=== PATIENT | female | born 1990 | race Caucasian/White ===

== ENCOUNTER → 2017-10-28 12:13 | Outpatient (CLI) | payer OTHER, SELFPAY ==
--- NOTE | 2017-10-28 12:15 | US_ITS ---
STUDY: ULTRASOUND TRANSVAGINAL CLINICAL: Female, 27 years old. Pain. TECHNIQUE: Transvaginal COMPARISON: None. FINDINGS: Normal uterine size measuring 8.5 x 5.5 x 4.0 cm in maximal craniocaudal dimension. There are no myometrial masses. Normal endometrial thickness measuring 6 mm. There are no endometrial masses, and there is no fluid in the endometrial cavity. A small amount of fluid is seen in the cervical canal consistent with recent menstrual period. Normal right ovary, measuring 2.2 x 2.3 x 1.9 cm. There are multiple follicles without a dominant cyst. Normal left ovary, measuring 2.8 x 1.9 x 1.2 cm. There are multiple follicles without a dominant cyst. There is no free fluid in the pelvis. Normal bladder contour. Polycystic ovary disease: No. US/Pelvic (Non ) IMPRESSION: Small amount of fluid in the endocervical canal is consistent with current menstrual period. No definite abnormality found. Electronically Signed: Angel Roberts MD at 17:27 EDT , Service support ,
--- NOTE | 2017-10-28 12:15 | US_ITS ---
STUDY: ULTRASOUND TRANSVAGINAL CLINICAL: Female, 27 years old. Pain. TECHNIQUE: Transvaginal COMPARISON: None. FINDINGS: Normal uterine size measuring 8.5 x 5.5 x 4.0 cm in maximal craniocaudal dimension. There are no myometrial masses. Normal endometrial thickness measuring 6 mm. There are no endometrial masses, and there is no fluid in the endometrial cavity. A small amount of fluid is seen in the cervical canal consistent with recent menstrual period. Normal right ovary, measuring 2.2 x 2.3 x 1.9 cm. There are multiple follicles without a dominant cyst. Normal left ovary, measuring 2.8 x 1.9 x 1.2 cm. There are multiple follicles without a dominant cyst. There is no free fluid in the pelvis. Normal bladder contour. Polycystic ovary disease: No. US/Transvaginal Non- IMPRESSION: Small amount of fluid in the endocervical canal is consistent with current menstrual period. No definite abnormality found. Electronically Signed: Angel Roberts MD at 17:27 EDT , Service support ,
== END ==
PROVIDERS: Family Provider Student in an Organized Health Care Education/Training Program; PCP Student in an Organized Health Care Education/Training Program; Visit Provider Obstetrics & Gynecology
DX: R10.2 Pelvic and perineal pain (principal)
CPT/HCPCS: 76830; 76856; 93976

== ENCOUNTER → 2018-07-03 16:58 | Outpatient (CLI) | payer MEDICAID, SELFPAY ==
[2018-07-03 16:23] VITALS: BMI 25.8
[2018-07-03 17:37] LABS: Absolute Lymphocyte Count 2.53 X10^3/ul (0.83-4.51); Absolute Neutrophil Count 6.3 X10^3/uL (2.0-7.7); Basophil# 0.02 X10^3/uL; Basophil% 0.2 % (0-1); Eosinophil# 0.05 X10^3/uL; Eosinophils% 0.5 % (0-5); Hematocrit 39.9 % (37-47); Hemoglobin 13.5 g/dl (12.0-15.0); Lymphocyte # 2.53 X10^3/ul (4.0); Lymphocyte % 26.7 % (19-41); Mean Corp Hgb Conc 33.8 g/gl (32-36); Mean Corpuscular Hgb 29.8 pg (27.0-32.0); Mean Corpuscular Volume 88.1 fL (81-99); Monocyte# 0.53 X10^3/uL; Monocyte% 5.6 % (0-10); Neutrophil % 66.7 % (47-70); POSITIVE COUNT NO; POSITIVE DIFFERENTIAL NO; POSITIVE MORPHOLOGY NO; Platelet Count 243 K/mm3 (150-450); RBC Distribution Width CV 12.5 % (11.6-14.6); RBC Distribution Width SD 39.5 fl (35.1-43.9); Red Blood Count 4.53 M/mm3 (4.2-5.4); White Blood Count 9.5 K/mm3 (4.4-11.0)
[2018-07-03 19:03] LABS: HIV - WCH Non-Reactive (Nonreactive); Rubella IgG 104.6 IU/mL
[2018-07-05 11:23] LABS: HEPATITIS B SURFACE AG Negative (Negative)
[2018-07-07 02:33] LABS: Rapid Plasmin Reagin (RPR) NONREACTIVE (NONREACTIVE)
== END ==
PROVIDERS: Family Provider Student in an Organized Health Care Education/Training Program; PCP Student in an Organized Health Care Education/Training Program; Referring Provider Obstetrics & Gynecology; Visit Provider Obstetrics & Gynecology
DX: Z34.90 Encounter for supervision of normal pregnancy, unspecified, unspecified trimester (principal)
CPT/HCPCS: 36415; 85025; 86592; 86703; 86762; 86850; 86900; 87086; 87340

== ENCOUNTER → 2018-08-04 11:50 | Outpatient (CLI) | payer MEDICAID, SELFPAY ==
[2018-08-04 11:33] VITALS: BMI 25.8
== END ==
PROVIDERS: Family Provider Student in an Organized Health Care Education/Training Program; PCP Student in an Organized Health Care Education/Training Program; Referring Provider Obstetrics & Gynecology; Visit Provider Obstetrics & Gynecology
DX: Z34.82 Encounter for supervision of other normal pregnancy, second trimester (principal)
CPT/HCPCS: 36415

== ENCOUNTER → 2018-09-25 07:56 | Outpatient (CLI) | payer MEDICAID, SELFPAY ==
[2018-09-07 12:17] VITALS: BMI 25.8
--- NOTE | 2018-09-25 07:58 | US_ITS ---
STUDY: SECOND AND THIRD TRIMESTER OBSTETRICAL ULTRASOUND REASON FOR EXAM: Female, 27 years old. Routine survey. Baby A LMP: May 04, 2018. TECHNIQUE: Transabdominal TECHNICAL QUALITY: Adequate. PRIOR ULTRASOUND: None. FINDINGS: There is a single intrauterine fetus. The fetus is in a variable presentation. There is demonstrated cardiac activity with a heart rate of 175 bpm. There is a normal amniotic fluid volume. The largest amniotic fluid pocket measures 5.3 cm x 12.9 cm. The amniotic fluid index (LULA) is normal. The placenta is fundal and posterior in location. There are Grade 0 placental changes. The cervix measures 4.3 cm in length. The bilateral adnexal regions are normal. BIOMETRY: BPD: 4.26 cm: 19 weeks, 0 days HC: 17.02 cm: 19 weeks, 0 days AC: 15.68 cm: 20 weeks, 6 days FL: 2.95 cm: 19 weeks, 1 days CI: 74% FL/BPD: 69% FL/HC: FL/AC: 19% HC/AC: 1.09 age by current US: 19 weeks, 5 days. CHRIS by current US: February 14, 2019. Estimated weight: 323 grams, +/- 47 grams, 16 %. Age by LMP: 20 weeks, 4 days. CHRIS by LMP: February 08, 2019. ANATOMY: Gender: Indeterminant Cranium: Normal lateral ventricles. Normal choroid plexus. Normal cerebellum. Normal cisterna magna. Normal face, nose and lips. Chest: Normal 4-chamber heart. Abdomen/Pelvis: Normal diaphragm. Normal stomach. Normal abdominal wall. Normal cord insertion. Normal 3 vessel cord. The kidneys are non-visualized. The bladder is non-visualized. There is a cystic structure in the mid abdomen. This may be related to the stomach. Follow-up examination is recommended. Spine: The cervical, thoracic and lumbar spines were not adequately seen due to the position. Extremities: Normal bilateral upper extremities. Normal bilateral lower extremities. IMPRESSION: Twin A. Estimated age of 19 weeks and 5 days. Several findings as described. Follow-up is recommended. Electronically Signed: Antonio Thornton, at 9:35 EST , Service support , STUDY: SECOND AND THIRD TRIMESTER OBSTETRICAL ULTRASOUND - TWIN REASON FOR EXAM: Female, 27 years old. LMP: May 04, 2018 TECHNIQUE: Transabdominal TECHNICAL QUALITY: Adequate. COMPARISON: None. FINDINGS: There are two intrauterine fetuses. The amniotic membrane cannot be visualized. There is a normal amniotic fluid volume within each amniotic sac. The uterine wall is normal. There is a competent closed cervical os. The cervix measures 4.3 cm in length. The bilateral adnexal regions are normal. Fetus B demonstrates indeterminate external genitalia. Fetus B demonstrates cardiac activity with a heart rate of 169 bpm. Fetus B is in a variable presentation. FETUS B BIOMETRY: BPD: 4.63 cm: 20 weeks, 0 days HC: 17.03 cm: 19 weeks, 5 days AC: 14.91 cm: 20 weeks, 2 days FL: 3.00 cm: 19 weeks, 2 days CI: 80% FL/BPD: 65% FL/HC: FL/AC: 20% HC/AC: 1.14 age by current US: 19 weeks, 6 days. CHRIS by current US: February 13, 2019. Estimated weight: 311 grams, +/- 45 grams, 11 %. Age by LMP: 20 weeks, 4 days. CHRIS by LMP: February 08, 2019. FETUS B ANATOMY: Cranium: Normal lateral ventricles. Normal choroid plexus. Normal cerebellum. Normal cisterna magna. Normal face, nose and lips. Chest: Normal 4-chamber heart. Abdomen/Pelvis: Normal diaphragm. Normal stomach. Normal abdominal wall. Normal cord insertion. Normal 3 vessel cord. Normal kidneys. Normal bladder. Spine: Normal cervical spine. Normal thoracic spine. Normal lumbar spine. Normal sacrum. Extremities: Normal bilateral upper extremities. Normal bilateral lower extremities. US/OB Anatomy Scan IMPRESSION: Twin B. Gestational age of 19 weeks and 6 days. Electronically Signed: Antonio Thornton, at 9:38 EST , Service support ,
== END ==
PROVIDERS: Family Provider Student in an Organized Health Care Education/Training Program; PCP Student in an Organized Health Care Education/Training Program; Referring Provider Obstetrics & Gynecology; Visit Provider Obstetrics & Gynecology
DX: Z34.90 Encounter for supervision of normal pregnancy, unspecified, unspecified trimester (principal)
CPT/HCPCS: 76805; 76810

== ENCOUNTER → 2018-11-17 | Outpatient (CLI) | payer MEDICAID, SELFPAY ==
[2018-11-13 10:00] VITALS: BMI 25.8
[2018-11-17 12:40] LABS: Absolute Lymphocyte Count 2.65 X10^3/ul (0.83-4.51); Absolute Neutrophil Count 7.5 X10^3/uL (2.0-7.7); Basophil# 0.05 X10^3/uL; Basophil% 0.4 % (0-1); Eosinophil# 0.11 X10^3/uL; Hematocrit 33.9 % (37-47); Lymphocyte # 2.65 X10^3/ul (4.0); Lymphocyte % 23.6 % (19-41); Mean Corp Hgb Conc 32.4 g/gl (32-36); Mean Corpuscular Hgb 28.1 pg (27.0-32.0); Mean Corpuscular Volume 86.5 fL (81-99); Mean Platelet Vol. 11.1 fl (6.2-12.0); Monocyte% 7.1 % (0-10); Neutrophil # 7.54 X10^3/uL (2.7-7.7); Platelet Count 135 K/mm3 (150-450); RBC Distribution Width CV 13.3 % (11.6-14.6); RBC Distribution Width SD 41.5 fl (35.1-43.9); Red Blood Count 3.92 M/mm3 (4.2-5.4); White Blood Count 11.3 K/mm3 (4.4-11.0)
[2018-11-17 12:47] LABS: POSITIVE COUNT NO; POSITIVE DIFFERENTIAL NO; POSITIVE MORPHOLOGY NO
[2018-11-17 13:01] LABS: Glucose Challenge Gest 1H 50g 114 mg/dL (70-140)
== END | disposition home or self-care (01) ==
PROVIDERS: Family Provider Student in an Organized Health Care Education/Training Program; PCP Student in an Organized Health Care Education/Training Program; Referring Provider Obstetrics & Gynecology; Visit Provider Obstetrics & Gynecology
DX: Z34.90 Encounter for supervision of normal pregnancy, unspecified, unspecified trimester (principal)
CPT/HCPCS: 36415; 82950; 85025

== ENCOUNTER 2018-11-29 15:10 | Outpatient (CLI) | payer MEDICAID, SELFPAY ==
[2018-11-29 15:05] VITALS: BMI 25.8
[2018-11-29 15:55] VITALS: BMI 30.9
[2018-11-29] MEDS: Lactated Ringers 1,000 ML 999 ML IV (16:21)
[2018-11-29 17:00] LABS: Mucous, Urine 0 SEEN /hpf (<or=2+); Red Blood Cells-Urine 0 SEEN /hpf (0-5)
[2018-11-29] MEDS: Lactated Ringers 500 ML 999 ML IV (17:06)
[2018-11-29 17:50] LABS: Color, Urine Yellow (Yellow); Glucose, Dipstick Normal (Normal); Ketone-Dipstick 50 mg/dl (Negative); Leukocyte Esterase-Dipstick 25 /ul (Negative); Nitrite-Dipstick Negative (Negative); Occult Blood-Urine Negative /ul (Negative); Protein-Dipstick Negative (Negative); Specific Gravity, Urine 1.015 (1.002-1.030); Urine Bilirubin Dipstick Negative (Negative); Urine Clarity Sl. Cloudy (Clear); Urine Urobilinogen 1 mg/dl (Normal)
[2018-11-29 17:52] LABS: Bacteria 2+ /hpf (None Seen); Squamous Epithelial Cells - UA 0-5 SEEN /hpf (5-10); White Blood Cells 0-5 SEEN /hpf (0-5)
[2018-11-29] MEDS: Dextrose 5%-Lactated Ringers 1,000 ML 200 ML IV (18:32)
[2018-11-29] MEDS: Terbutaline 1 MG/ML Vial 0.25 MG SC (18:33)
--- NOTE | 2018-11-30 07:36 | OB.TRI.NOTE ---
History of Present Illness Date of Service: 11/29/18 Was patient seen by the physician?: Yes Reason For Visit: R/O PRE TERM LABOR Date of Service: 11/29/18 Final CHRIS: 02/08/19 Final CHRIS Source: US <20 weeks Gestational age: 30 Weeks and 0 Days History of Present Illness: Complaints of contraction like pains. No signs of PPROM no bleeding. Allergies soap Allergy (Verified 11/29/18 15:57) Rash sumatriptan [From Imitrex] Allergy (Verified 11/29/18 15:57) Anaphylaxis - Pertinent Past Medical History Medical History: Past Medical History (Last Reviewed 11/29/18 @ 14:35 by Rylee Ramos) Abnormal Pap smear of cervix Surgical History: Past Surgical History (Last Reviewed 11/29/18 @ 14:35 by Rylee Ramos) Endometriosis determined by laparoscopy Laboratory Studies: Laboratory Tests 11/29/18 Range/Units 16:45 Urine Color Yellow (Yellow) Urine Clarity Sl. Cloudy (Clear) Urine pH 7.0 (5.0 - 8.0) Ur Specific [place] 1.015 (1.002-1.030) Urine Protein Negative (Negative) mg/dl Urine Glucose (UA) Normal (Normal) mg/dl Urine Ketones 50 H (Negative) mg/dl Urine Occult Blood Negative (Negative) /ul Urine Nitrite Negative (Negative) Urine Bilirubin Negative (Negative) mg/dL Urine Urobilinogen 1 H (Normal) mg/dl Ur Leukocyte Esterase 25 H (Negative) /ul Urine RBC 0 SEEN (0-5) /hpf Urine WBC 0-5 SEEN (0-5) /hpf Ur Squamous Epith Cells 0-5 SEEN (5-10) /hpf Urine Bacteria 2+ (None Seen) /hpf Urine Mucus 0 SEEN (<or=2+) /hpf Physical Exam General: Alert, Oriented x3, Cooperative, No apparent distress Cardiovascular: Regular rate, Regular Rhythm Lungs: Clear to auscultation, Normal air movement Abdomen: Soft, Non Tender, Non-Distended, Gravid, - - Twin gestation Extremities:: No edema Neurological: Neuro grossly intact Estimated gestational size: Large for gestational age - twins Presentation: Cephalic Cervix Dilation (cm): 0 NST - FHR Rate Baby A Baseline: 150s Variability:: Moderate Accelerations:: 15 x 15 Decelerations:: None NST Reactive:: Yes, Appropriate for gestational age FHR Category:: Category I Uterine Activity:: q 2-3 minutes - FHR Rate Baby B Baseline: 150s Variability:: Moderate Accelerations:: 15 x 15 Decelerations:: None NST Reactive:: Yes, Appropriate for gestational age FHR Category:: Category I Uterine Activity:: q 2-3 minutes Impression/Plan 30 week twin with complaints of contractions. Twin gestation complicated by one fetus with severe anomalies and polyhydramnios. Plan is for delivery here if progresses to at least 32 weeks. Cervix is closed with no signs of PPROM. Britany was given two liters of IV fluids and then one single dose of terbutaline sq with resolution of contractions. Her cervix did not change during this time. She was discharged home with instructions to rest and followup at her next scheduled appointment. Her urinalysis was not specific for infection.
== END 2018-11-29 20:15 | disposition home or self-care (01) ==
LOC: WPOUT 15:20 → WP 15:21
PROVIDERS: Family Provider Student in an Organized Health Care Education/Training Program; PCP Student in an Organized Health Care Education/Training Program; Referring Provider Obstetrics & Gynecology; Visit Provider Obstetrics & Gynecology
DX: O30.003 Twin pregnancy, unspecified number of placenta and unspecified number of amniotic sacs, third trimester (principal); Z3A.30 30 weeks gestation of pregnancy
CPT/HCPCS: 96360; 96361; 96372; 59025; 59050; 81001; 99218; J7120; G0378

== ENCOUNTER 2018-12-03 03:30 | Outpatient (CLI) | payer MEDICAID, SELFPAY ==
[2018-12-03 04:24] VITALS: BMI 30.9
--- NOTE | 2018-12-03 04:29 | OB.TRI.NOTE ---
- Problem List (1) labor in third trimester Status: Acute Qualifiers: Fetus number: fetus 2 of multiple gestation History of Present Illness Date of Service: 12/03/18 Was patient seen by the physician?: Yes Reason For Visit: R/O LABOR Date of Service: 12/03/18 Final CHRIS Source: US <20 weeks Gestational age: 30w3d ega History of Present Illness: Twin complicated by polyhydramnios of one twin with renal anomalies of second twin presenting with contractions and cervical change. No signs of PPROM. Allergies soap Allergy (Verified 11/29/18 15:57) Rash sumatriptan [From Imitrex] Allergy (Verified 11/29/18 15:57) Anaphylaxis - Pertinent Past Medical History Medical History: Past Medical History (Last Reviewed 11/29/18 @ 14:35 by Rylee Ramos) Abnormal Pap smear of cervix Surgical History: Past Surgical History (Last Reviewed 11/29/18 @ 14:35 by Rylee Ramos) Endometriosis determined by laparoscopy Review of Systems Constitutional: Denies: Chills, Fever Cardiovascular: Denies: Chest Pain, Chest Tightness Respiratory: Denies: Cough, Shortness of Breath Gastrointestinal: Reports: Abdominal Pain - contractions with back pain Physical Exam General: Alert, Oriented x3, Cooperative, No apparent distress Lungs: Clear to auscultation, Normal air movement Abdomen: Soft, Non-Distended, Gravid - LGA due to twin gestation Extremities:: No edema Neurological: Neuro grossly intact PRINTING ESTIMATOR: Normal external genitalia Estimated gestational size: Large for gestational age Presentation: Unable to assess Cervix Dilation (cm): 3 Station: -3 Effacement (%): 90 NST - FHR Rate Baby A Baseline: 160 Variability:: Moderate Accelerations:: 15 x 15 Decelerations:: None NST Reactive:: Yes, Appropriate for gestational age FHR Category:: Category I Uterine Activity:: unable to assess - FHR Rate Baby B Baseline: 160 Variability:: Moderate Accelerations:: 15 x 15 Decelerations:: None NST Reactive:: Yes, Appropriate for gestational age FHR Category:: Category I Impression/Plan 30w3d ega with twin gestation in early labor with history of previous C/S. This twin complicated by monochorionic status with severe anomalies on one twin and polyhydramnios of the second twin. Patient is known to [facility] physicians and will be transported there for possible delivery. She was given terbutaline single dosage here and started on Magnesium Sulfate prophylaxis and tocolysis. She was given ampicillin 2grams IV.
[2018-12-03] MEDS: Betamethasone/Betamethasone 30 MG/5 ML Vial 12 MG IM (04:31)
[2018-12-03] MEDS: Terbutaline 1 MG/ML Vial 0.25 MG SC (04:36)
[2018-12-03] MEDS: Magnesium Sulfate 4gm/100mL 4 GM/100 ML IV.SOLN. IV (04:40)
[2018-12-03] MEDS: Magnesium Sulfate 20 GM/500 ML BAG IV (05:03)
[2018-12-03 05:11] LABS: Absolute Lymphocyte Count 3.39 X10^3/ul (0.83-4.51); Basophil# 0.04 X10^3/uL; Basophil% 0.3 % (0-1); Eosinophil# 0.22 X10^3/uL; Eosinophils% 1.4 % (0-5); Hemoglobin 11.4 g/dl (12.0-15.0); Lymphocyte # 3.39 X10^3/ul (4.0); Lymphocyte % 21.3 % (19-41); Mean Corp Hgb Conc 32.6 g/gl (32-36); Mean Corpuscular Hgb 26.8 pg (27.0-32.0); Mean Corpuscular Volume 82.2 fL (81-99); Mean Platelet Vol. 11.7 fl (6.2-12.0); Monocyte# 1.07 X10^3/uL; Monocyte% 6.7 % (0-10); Neutrophil # 10.98 X10^3/uL (2.7-7.7); Platelet Count 184 K/mm3 (150-450); RBC Distribution Width CV 12.8 % (11.6-14.6); RBC Distribution Width SD 37.9 fl (35.1-43.9); Red Blood Count 4.26 M/mm3 (4.2-5.4); White Blood Count 15.9 K/mm3 (4.4-11.0)
[2018-12-03 05:19] LABS: POSITIVE COUNT NO; POSITIVE DIFFERENTIAL NO; POSITIVE MORPHOLOGY NO
[2018-12-03 05:43] LABS: Mucous, Urine 0 SEEN /hpf (<or=2+); Red Blood Cells-Urine 0 SEEN /hpf (0-5)
[2018-12-03 05:44] LABS: Color, Urine Yellow (Yellow); Glucose, Dipstick Normal (Normal); Ketone-Dipstick Negative (Negative); Leukocyte Esterase-Dipstick 500 /ul (Negative); Nitrite-Dipstick Negative (Negative); Occult Blood-Urine Negative /ul (Negative); Protein-Dipstick Negative (Negative); Urine Bilirubin Dipstick Negative (Negative); Urine Clarity Sl. Cloudy (Clear); Urine Urobilinogen Normal (Normal)
[2018-12-03 06:19] LABS: Bacteria 1+ /hpf (None Seen); Squamous Epithelial Cells - UA 0-5 SEEN /hpf (5-10); White Blood Cells 0-5 SEEN /hpf (0-5)
== END 2018-12-03 05:32 | disposition short-term general hospital (02) ==
LOC: WPOUT 03:45 → WP 03:46
PROVIDERS: Family Provider Student in an Organized Health Care Education/Training Program; PCP Student in an Organized Health Care Education/Training Program; Referring Provider Obstetrics & Gynecology; Visit Provider Obstetrics & Gynecology
DX: O30.013 Twin pregnancy, monochorionic/monoamniotic, third trimester (principal); Z3A.30 30 weeks gestation of pregnancy
CPT/HCPCS: 96365; 96368; 96372; 59025; 59050; 81001; 85025; 86850; 86900; 99218; G0378; J0702

== ENCOUNTER → 2018-12-26 | Outpatient (CLI) | payer MEDICAID, SELFPAY ==
[2018-12-26 13:28] VITALS: BMI 30.9
== END | disposition home or self-care (01) ==
PROVIDERS: Family Provider Student in an Organized Health Care Education/Training Program; PCP Student in an Organized Health Care Education/Training Program; Referring Provider Obstetrics & Gynecology; Visit Provider Obstetrics & Gynecology
DX: T81.49XA Infection following a procedure, other surgical site, initial encounter (principal)
CPT/HCPCS: 87070; 87077; 87186; 87205

== ENCOUNTER → 2022-12-22 | Outpatient (CLI) | payer SELFPAY ==
[2022-12-30 13:08] LABS: HPV APTIMA, High Risk Negative (Negative)
== END | disposition home or self-care (01) ==
LOC: LABSPEC 16:42
PROVIDERS: PCP Internal Medicine; Referring Provider Nurse Practitioner Women's Health; Visit Provider Nurse Practitioner Women's Health
DX: Z12.4 Encounter for screening for malignant neoplasm of cervix (principal)
CPT/HCPCS: 87624; 88175; G0145

== ENCOUNTER → 2023-05-23 | Outpatient (CLI) | payer SELFPAY ==
[2023-05-23 12:14] LABS: Absolute Lymphocyte Count 2.37 X10^3/uL (0.83-4.51); Absolute Neutrophil Count 8.9 X10^3/uL (2.0-7.7); Basophil# 0.07 X10^3/uL; Basophil% 0.6 % (0-1); Eosinophil# 0.49 X10^3/uL; Eosinophils% 3.9 % (0-5); Hematocrit 42.1 % (37-47); Hemoglobin 13.6 g/dL (12.0-15.0); Lymphocyte # 2.37 X10^3/ul (0.83-4.51); Lymphocyte % 18.8 % (19-41); Mean Corp Hgb Conc 32.3 g/dL (32-36); Mean Corpuscular Hgb 29.8 pg (27.0-32.0); Mean Corpuscular Volume 92.1 fL (81-99); Mean Platelet Vol. 11.1 fl (6.2-12.0); Monocyte# 0.72 X10^3/uL; Monocyte% 5.7 % (0-10); NRBC Flagged by Analyzer 0 % (0-5); Neutrophil # 8.94 X10^3/uL (2.7-7.7); Neutrophil % 70.7 % (47-70); Platelet Count 232 K/mm3 (150-450); RBC Distribution Width CV 12.8 % (11.6-14.6); RBC Distribution Width SD 43.2 fl (35.1-43.9); Red Blood Count 4.57 M/mm3 (4.2-5.4); White Blood Count 12.6 K/mm3 (4.4-11.0)
[2023-05-23 12:51] LABS: ALB/GLOB Ratio 0.8 RATIO (0.9-2.4); AST(SGOT) 11 U/L (15-37); Alanine Aminotransfer ALT/SGPT 23 U/L (13-56); Albumin, Serum 3.4 g/dL (3.2-5.0); Alkaline Phosphatase 52 U/L (45-117); Anion Gap 4 (5-15); BUN 11 mg/dL (7-18); BUN/Creat Ratio 12.3 RATIO (10-20); Calcium,Total 8.7 mg/dL (8.5-10.1); Chloride 105 mmol/L (98-107); Creatinine, Serum 0.89 mg/dL (0.55-1.02); EST Glomerular Filtration Rate 78 mL/min (>60); Est Glom Filt Rate - Afr Amer 95 mL/min (>60); Glucose 98 mg/dL (74-106); Potassium 3.9 mmol/L (3.5-5.1); Protein, Total 7.4 g/dL (6.4-8.2); Sodium Level 138 mmol/L (136-145)
== END | disposition home or self-care (01) ==
LOC: BIMLAB 10:03
PROVIDERS: PCP Internal Medicine; Referring Provider Internal Medicine; Visit Provider Internal Medicine
DX: F41.9 Anxiety disorder, unspecified (principal); F32.A Depression, unspecified
CPT/HCPCS: 36415; 80053; 85025

== ENCOUNTER 2023-10-03 16:20 | Observation (INO) | payer SELFPAY ==
[2023-10-03 16:20] VITALS: BP 157/107; PULSE 107; RESP 18; TEMP 36.8; O2SAT 98; BMI 27.6
--- NOTE | 2023-10-03 18:17 | CT_ITS ---
STUDY: CT BRAIN WITHOUT CONTRAST REASON FOR EXAM: Female, 32 years old. Pain RADIATION DOSAGE (If Supplied By Facility): CTDIvol = ( 44.99 ) mGy, DLP = ( 782.05 ) mGycm TECHNIQUE: Transaxial CT imaging of the brain was performed without administration of intravenous contrast material. Individualized dose optimization techniques were used for this CT. COMPARISON: No relevant priors. FINDINGS: Normal soft tissue structures. Normal calvarium. Normal size ventricles and extra-axial spaces for the patient''s age. Normal white matter tracts of the cerebral hemispheres. Normal basal ganglia and thalami. Normal brainstem. Normal cerebellum. There is no intracranial hemorrhage. There are no findings of an acute ischemic infarction. Normal visualized paranasal sinuses. CT/Brain/Head without Contrast IMPRESSION: Normal unenhanced CT scan of the brain. Electronically Signed: Ricky Parmar MD at 20:27 EST ,
--- NOTE | 2023-10-03 18:18 | EX.ED.VIS.HA ---
HPI History of Present Illness Chief Complaint: Headache Informant: patient and parent Narrative Narrative: Persistent nontraumatic migraine headache for the past 8 days. Photophobia and phonophobia. Has had nausea and vomiting. No fevers. Seen PCP 4 days ago Toradol injections with muscle relaxer. Placed on oral Reglan and Benadryl. Also given Ubrelvy. States took this at noon with no relief. History of similar this is more intense. Anaphylaxis to Imitrex. Has seen neurology in the past, per mother migraine since the fourth grade. Mother states a week prior to 8 days ago, had 3-day history of migraines. Prior similar symptoms: Yes PFSH PFS Medical History Abnormal Pap smear of cervix History of emotional problems Hx of endometriosis Irritable bowel syndrome Migraine Seasonal allergies Home Medications acetaminophen 500 mg tablet (Tylenol Extra Strength) 500 mg PO Q6H PRN fever 06/17/22 [History Last Taken Unknown] loratadine 10 mg chewable tablet (Claritin) 10 mg PO DAILY PRN allergy symptoms 06/17/22 [History Last Taken Unknown] L norgest/E estradiol-E estrad 0.15 mg-30 mcg (84)/10 mcg(7) tabs,3mos (Seasonique) 1 tab PO DAILY #182 tabs 12/22/22 [Rx Last Taken Unknown] ubrogepant 50 mg tablet (Ubrelvy) 50 mg PO ONCE MIGRAINES #10 tabs 02/16/23 [Rx Last Taken Unknown] buspirone 10 mg tablet 10 mg PO BID #180 tabs 05/06/23 [Rx Last Taken Unknown] desvenlafaxine succinate 25 mg tablet,extended release 24 hr (Pristiq) 25 mg PO DAILY ANXIETY #90 tabs 09/14/23 [Rx Last Taken Unknown] desvenlafaxine succinate 50 mg tablet,extended release 24 hr (Pristiq) 50 mg PO DAILY ANXIETY #90 tabs 09/14/23 [Rx Last Taken Unknown] cyclobenzaprine 5 mg tablet 5 mg PO TID PRN headache #10 tabs 09/29/23 [Rx Last Taken Unknown] metoclopramide HCl 10 mg tablet 10 mg PO Q6H PRN nausea and vomiting #10 tabs 09/29/23 [Rx Last Taken Unknown] Allergy/AdvReac Type Severity Reaction Status Date / Time soap Allergy Rash Verified 09/29/23 13:25 sumatriptan [From Imitrex] Allergy Anaphylaxis Verified 09/29/23 13:25 Family History Grandmother Diabetes Cancer pancreatic Son Asthma Father Narcolepsy Hyperlipidemia Surgical History Endometriosis determined by laparoscopy Previous section Social History household members: spouse current occupational status: employed 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 Smoking Status: Former smoker quit date: 04/01/22 pack-years: 8 Electronic Cigarette Use: not used alcohol intake: current alcohol intake frequency: holidays/special occasions only details: occasionally substance use type: does not use caffeine: Yes what type of physical activity do you participate in: none seatbelt use: always do you feel safe at home: Yes additional social history: - 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 ROS ROS ED Constitutional Constitutional ED: Denies chills, fever(s) or sweats Eyes Eyes: Reports other Details: Photophobia ; Denies change in vision ENT ENT ED: Denies dysphagia or sore throat Cardiovascular Cardiovascular: Denies chest pain, leg edema, palpitations or racing heartbeat Respiratory/Chest Respiratory/Chest: Denies cough, dyspnea or dyspnea on exertion Gastrointestinal Gastrointestinal: Reports nausea and vomiting; Denies abdominal pain or diarrhea Genitourinary Genitourinary ED: Denies dysuria, hematuria or urinary frequency Musculoskeletal Musculoskeletal: Denies back pain, extremity pain or neck pain Integumentary Denies rash or wounds Neurologic Neurologic: Reports headache(s); Denies paresthesias or weakness EXAM Physical Exam Const Vital Signs: 10/03/23 16:20 10/03/23 18:20 10/03/23 20:35 Temperature 98.2 F Temperature Source Temporal Pulse Rate 107 H 107 H 115 H Respiratory Rate 18 18 20 H Blood Pressure 157/107 H 147/101 H Blood Pressure Mean 123 116 Pulse Ox 98 100 100 Oxygen Delivery Method Room Air Room Air Room Air 10/03/23 22:00 10/03/23 23:15 10/04/23 00:06 Temperature Temperature Source Pulse Rate 102 H 116 H 113 H Respiratory Rate 12 14 12 Blood Pressure 154/96 H 136/84 H 133/91 H Blood Pressure Mean 115 101 105 Pulse Ox 99 99 99 Oxygen Delivery Method Room Air Room Air Room Air 10/04/23 00:50 Temperature 97.8 F Temperature Source Pulse Rate 122 H Respiratory Rate 16 Blood Pressure 136/79 H Blood Pressure Mean 98 Pulse Ox 100 Oxygen Delivery Method Positive well nourished and well developed Constitutional Narrative: Fatigue, nontoxic General Appearance ED: well developed HEENT Reports moist mucous membranes normocephalic and atraumatic Eyes PERRL, EOMs intact bilaterally and conjunctivae normal General Eye ED: Yes normal appearance of both eyes Neck no lymphadenopathy, supple and no meningeal signs General: Negative for tenderness Chest Wall Chest: Negative for tenderness Resp normal respiratory effort and normal air movement Effort and Inspection: symmetric chest movement; Negative for respiratory distress Cardio regular rate, regular rhythm and no murmurs Peripheral Pulses: pulses 2+ throughout GI normal to inspection, nondistended, normoactive bowel sounds and non-tender Palpation: Negative for guarding or rebound tenderness present Back/Spine no CVA tenderness and no thoracic nor lumbar tenderness Extremity normal to inspection General Extremety ED: Negative for edema or tenderness General Extremity: Negative for edema Neuro oriented x3, CN's II-XII intact bilaterally and no sensory deficits noted Sensorium / Orientation: awake and alert Skin no rashes or lesions noted and no wounds MDM MDM MDM Narrative Medical decision making narrative: Interventions / MDM: Differential diagnosis: Diagnosis considered but do not suspect: No meningitis symptoms. Migraine headache My EKG interpretation: N/A Imaging independently reviewed and interpreted by myself: CT brain: No acute process External documents reviewed: N/A Test considered but not ordered:N/A ED course: Nontoxic no focal deficit. No meningismal findings. Progressive worsening migraine headaches. With persisting symptoms worsening and previous CT brain ordered further evaluation. Will treat migraine regimen Reglan Benadryl and IV fluids pending CT results. 1950: Wet CT read by myself no acute process. Reevaluation unchanged and headache. Will order IV Depakene and reevaluate. 0: CT brain negative per radiology. Reevaluation very minimal improvement. Ordered for IV Toradol and Topamax. 0030: Reevaluation symptoms down to a 7. Still having headaches. Noted no meningismus findings. With intractable migraine headache, will discuss with hospitalist for admission. Re-evaluation: stable Disposition discussed with patient/family/significant other: Patient and mother Case discussed with consulting clinician: Hospitalist This note was generated with Raw[employer] dictation software. It may contain incorrect words, spelling, and punctuation that were not noted in checking the note before signing. Radiography Diagnostic Testing: Clinical Impression(s) from Imaging Studies Brain CT 10/03/23 18:17 IMPRESSION: Normal unenhanced CT scan of the brain. Electronically Signed: Ricky Parmar MD at 20:27 EST , Discharge Plan Triage Chief Complaint: Headache ED Provider: Tee Andres Dx/Rx/DC Orders Clinical Impression: Intractable headache, Migraine Prescriptions: No Action acetaminophen [Tylenol Extra Strength] 500 mg tablet 500 mg PO Q6H PRN (Reason: fever) Claritin 10 mg tablet,chewable 10 mg PO DAILY PRN (Reason: allergy symptoms) L norgest/e.estradiol-e.estrad [Seasonique] 0.15 mg-30 mcg (84)/10 mcg (7) tablets,dose pack,3 month 1 tab PO DAILY Qty: 182 4RF metoclopramide HCl 10 mg tablet 10 mg PO Q6H PRN (Reason: nausea and vomiting) Qty: 10 0RF cyclobenzaprine 5 mg tablet 5 mg PO TID PRN (Reason: headache) Qty: 10 0RF Ubrelvy 50 mg tablet 50 mg PO ONCE Qty: 10 0RF Rx Instructions: as a single dose; may repeat once in >=2 hours after first dose if needed buspirone 10 mg tablet 10 mg PO BID Qty: 180 0RF desvenlafaxine succinate [Pristiq] 25 mg tablet extended release 24 hr 25 mg PO DAILY Qty: 90 0RF Rx Instructions: take in addition to 50mg for a total of 75mg daily desvenlafaxine succinate [Pristiq] 50 mg tablet extended release 24 hr 50 mg PO DAILY Qty: 90 0RF Primary Care Provider: Sharmila Upton Referrals: Sharmila Upton MD [Primary Care Provider] - Disposition Disposition: Acute Care Hospital [facility]
[2023-10-03 18:20] VITALS: BP 147/101; PULSE 107; RESP 18; O2SAT 100
[2023-10-03] MEDS: DiphenhydrAMINE 50 MG/ML Syringe 25 MG IV (18:46)
[2023-10-03] MEDS: Metoclopramide 10 MG/2 ML Vial IV (18:46)
[2023-10-03] MEDS: 0.9% Normal Saline (1000mL) 1,000 ML 999 ML IV (18:46)
[2023-10-03] MEDS: Valproate Sodium 1,000 MG in Dextrose 5%-Water (50mL Bag) 50 ML 50 MG IV (20:30)
--- OUTSIDE RECORDS SUMMARY | 2023-10-03 20:30 | XMS RPT_ITS | CCD ---
Author Name Unknown Address [address] [place] [address] Organization [facility] Care Team Providers Care Wool Scourer Name Role Phone Cookie Gallardo MD Unavailable [phone] Maddison ARCINIEGA, Kathi Blair Unavailable DAVIS VIDAL Unavailable Unavailable CRISTHIAN NELSON Unavailable Unavail able COOKIE GALLARDO Unavailable Unavailable MO WILEY Unavailable Unavailable COOKIE GALLARDO Unavailable Unavailable Cookie Gallardo MD Unavailable [phone] Maddison ARCINIEGA, Kathi Blair Unavailable [phone] PROVIDER, UNKNOWN Referring Unavailable Bruno Navarrete Primary Care Unavailable Veronica Orozco Attending Unavailable Allergies Allergy Classification Reported Allergen(s) Allergy Type Date of Onset Reaction(s) Facility (20 sources) SUMAtriptan drug allergy 7 [facility] (1 source) SUMAtriptan; Translations: [SUMATRIPTAN SUCCINATE] Drug Allergy 6 [facility] (1 source) SOAP; Translations: [SOAP] Propensity to adverse reactions to drug (disorder) 5 [facility] Medications Completed/Discontinued Medications Medication Drug Class(es) Dates Sig (Normalized) Sig (Original) LEVONORGEST-ETH ESTRAD 91-DAY (3 sources) Start: 06-01-2017 take 1 tablet by mouth once daily SEASONIQUE 0.15-0.03 &0.01 MG TABS One tablet by mouth daily LEVONORGEST-ETH ESTRAD 91-DAY [id number] Cookie Gallardo MD VIT-FE FUMARATE-FA (10 sources) Start: 03-01-2017 take 1 tablet by mouth once daily VITAMINS 28-0.8 MG TABS One tablet by mouth daily VIT-FE FUMARATE-FA [id number] Cookie Gallardo MD Problems Active Problems Problem Classification Problem Date Documented Da te Episodic/Chronic Contraceptive and procreative management (2 sources) Encounter for sterilization; Translations: [Encounter for sterilization] Onset: 12-03-2018 Episodic Early or threatened labor (2 sources) labor third trimester with delivery third trimester, fetus 1; Translations: [ labor third tri w del third tri, fetus 1] Onset: 12-03-2018 Episodic Malposition; malpresentation (2 sources) Maternal care for breech presentation, fetus 1; Translations: [Maternal care for breech presentation, fetus 1] Onset: 12-03-2018 Episodic Other complications of ; puerperium affecting management of mother (2 sources) Anemia of the puerperium; Translations: [Anemia of the puerperium] Onset: 12-03-2018 Chronic Other complications of ; puerperium affecting management of mother (2 sources) Maternal care for intrauterine , fetus 1; Translations: [Maternal care for intrauterine , fetus 1] Onset: 12-03-2018 Episodic Other complications of ; puerperium affecting management of mother (2 sources) Abnormality in heart rate and rhythm complicating labor and delivery; Translations: [Abnlt in heart rate and rhythm comp labor and delivery] Onset: 12-03-2018 Episodic Other complications of (2 sources) Twins, one liveborn and one stillborn; Translations: [Twins, one liveborn and one stillborn] Onset: 12-03-2018 Episodic Other and delivery including normal (20 sources) Primigravida; Translations: [Gestation period, 36 weeks] Onset: 03-01-2017 03-21-2017 Episodic Other and delivery including normal (2 sources) Twin , dichorionic/diamnio tic, third trimester; Translations: [Twin , dichorionic/diamnio tic, third trimester] Onset: 12-03-2018 Polyhydramnios and other problems of amniotic cavity (6 sources) Oligohydramnios, third trimester, fetus 1; Translations: [ premature rupture of membranes, onset of labor more than 24 hours following rupture, third trimester] Onset: 12-03-2018 Episodic Residual codes; unclassified (2 sources) 30 weeks gestation of ; Translations: [30 weeks gestation of ] Onset: 12-03-2018 Unclassified (4 sources) care ; Translations: [Encounter for routine follow-up] Onset: 05-04-2017 05-04-2017 Unclassified (1 source) Unknown / UNK(Unknown) Onset: 02-03-2017 Past or Other Problems Problem Classification Problem Date Documented Da te Episodic/Chronic Residual codes; unclassified (11 sources) 34 weeks gestation of ; Translations: [34 weeks gestation of ] Onset: 03-01-2017 03-01-2017 Unclassified (20 sources) 37 weeks gestation of ; Translations: [34 weeks gestation of ] Onset: 03-01-2017 Resolved: 05-04-2017 03-24-2017 Results Test Name Value Interpretation Reference Range Facil ity Vital Signs Date Time Vital Sign Value Performing Clinician Faci lity 06-01-2017 11:36-0400 BMI (Body Mass Index) 28.32 kg/m2 Cookie Gallardo MD [facility] 06-01-2017 11:36-0400 BP Diastolic 78 mm[Hg] Cookie Gallardo MD [facility] 06-01-2017 11:36-0400 BP Systolic 125 mm[Hg] Cookie Gallardo MD [facility] 06-01-2017 11:36-0400 Pulse (Heart Rate) 109 /min Cookie Gallardo MD [facility] 06-01-2017 11:36-0400 Weight 74.84 kg Cookie Gallardo MD [facility] 05-04-2017 11:36-0400 BMI (Body Mass Index) 28.66 kg/m2 Cookie Gallardo MD [facility] 05-04-2017 11:36-0400 Body Temperature 97.7 [degF] Cookie Gallardo MD [facility] 05-04-2017 11:36-0400 BP Diastolic 89 mm[Hg] Cookie Gallardo MD [facility] 05-04-2017 11:36-0400 BP Systolic 134 mm[Hg] Cookie Gallardo MD [facility] 05-04-2017 11:36-0400 Pulse (Heart Rate) 107 /min Cookie Gallardo MD [facility] 05-04-2017 11:36-0400 Respiratory Rate 16 /min Cookie Gallardo MD [facility] 05-04-2017 11:36-0400 Weight 75.75 kg Cookie Gallardo MD [facility] 04-12-2017 07:05-0400 BMI (Body Mass Index) 33.5 kg/m2 Cookie Gallardo MD [facility] 04-12-2017 07:05-0400 Body Temperature 98.2 [degF] Cookie Gallardo MD [facility] 04-12-2017 07:05-0400 BP Diastolic 83 mm[Hg] Cookie Gallardo MD [facility] 04-12-2017 07:05-0400 BP Systolic 136 mm[Hg] Cookie Gallardo MD [facility] 04-12-2017 07:05-0400 Pulse (Heart Rate) 100 /min Cookie Gallardo MD [facility] 04-12-2017 07:05-0400 Respiratory Rate 16 /min Cookie Gallardo MD [facility] 04-12-2017 07:05-0400 Weight 88.54 kg Cookie Gallardo MD [facility] 04-07-2017 14:15-0400 BMI (Body Mass Index) 33.33 kg/m2 Cookie Gallardo MD [facility] 04-07-2017 14:15-0400 Body Temperature 98.5 [degF] Cookie Gallardo MD [facility] 04-07-2017 14:15-0400 BP Diastolic 88 mm[Hg] Cookie Gallardo MD [facility] 04-07-2017 14:15-0400 BP Systolic 124 mm[Hg] Cookie Gallardo MD [facility] 04-07-2017 14:15-0400 Pulse (Heart Rate) 85 /min Cookie Gallardo MD [facility] 04-07-2017 14:15-0400 Respiratory Rate 17 /min Cookie Gallardo MD [facility] 04-07-2017 14:15-0400 Weight 88.09 kg Cookie Gallardo MD [facility] 03-31-2017 13:28-0400 BMI (Body Mass Index) 33.78 kg/m2 Cookie Gallardo MD [facility] 03-31-2017 13:28-0400 Body Temperature 98.4 [degF] Cookie Gallardo MD [facility] 03-31-2017 13:28-0400 BP Diastolic 81 mm[Hg] Cookie Gallardo MD [facility] 03-31-2017 13:28-0400 BP Systolic 138 mm[Hg] Cookie Gallardo MD [facility] 03-31-2017 13:28-0400 Pulse (Heart Rate) 107 /min Cookie Gallardo MD [facility] 03-31-2017 13:28-0400 Respiratory Rate 16 /min Cookie Gallardo MD [facility] 03-31-2017 13:28-0400 Weight 89.27 kg Cookie Gallardo MD [facility] 03-24-2017 15:42-0400 BMI (Body Mass Index) 33.33 kg/m2 Kathi Maddison OIL WINTER[employer]ER [facility] 03-24-2017 15:42-0400 Body Temperature 98 [degF] Kathi Maddison [facility] 03-24-2017 15:42-0400 BP Diastolic 82 mm[Hg] Kathi Maddison OIL WINTER[employer]ER [facility] 03-24-2017 15:42-0400 BP Systolic 130 mm[Hg] Kathi [place] [facility] [facility] 03-24-2017 15:42-0400 Pulse (Heart Rate) 104 /min Kathi [place] [employer]IL [employer]ER [facility] 03-24-2017 15:42-0400 Respiratory Rate 16 /min Kathi Maddison OIL WINTER[employer]ER [facility] 03-24-2017 15:42-0400 Weight 88.09 kg Kathi Maddison [facility] 03-17-2017 15:48-0400 BMI (Body Mass Index) 33.02 kg/m2 Kathi Maddison OIL [employer]INTER[employer]ER [facility] 03-17-2017 15:48-0400 Body Temperature 99.2 [degF] Kathi [place] OIL [facility]INTER[employer]ER [facility] 03-17-2017 15:48-0400 BP Diastolic 80 mm[Hg] Kathi Maddison OIL WINTERIZER [facility] 03-17-2017 15:48-0400 BP Systolic 115 mm[Hg] Kathi Maddison OIL WINTER[employer]ER [facility] 03-17-2017 15:48-0400 Pulse (Heart Rate) 116 /min Kathi Maddison OIL WINTER[employer]ER [facility] 03-17-2017 15:48-0400 Respiratory Rate 17 /min Kathi [place] OIL [employer] [facility] 03-17-2017 15:48-0400 Weight 87.27 kg Kathi Maddison OIL WINTER[employer]ER [facility] 03-01-2017 16:15-0400 BMI (Body Mass Index) 32.37 kg/m2 Cookie Gallardo MD [facility] 03-01-2017 16:15-0400 Body Temperature 98.9 [degF] Cookie Gallardo MD [facility] 03-01-2017 16:15-0400 BP Diastolic 77 mm[Hg] Cookie Gallardo MD [facility] 03-01-2017 16:15-0400 BP Systolic 124 mm[Hg] Cookie Gallardo MD [facility] 03-01-2017 16:15-0400 Height 162.56 cm Cookie Gallardo MD [facility] 03-01-2017 16:15-0400 Pulse (Heart Rate) 96 /min Cookie Gallardo MD [facility] 03-01-2017 16:15-0400 Respiratory Rate 16 /min Cookie Gallardo MD [facility] 03-01-2017 16:15-0400 Weight 85.55 kg Cookie Gallardo MD [facility] Encounters Encounter Date Encounter Type Care Provider Facility Start: 12-03-2018 End: 12-08-2018 Evaluation and management of inpatient [facility] PROVIDER [facility] Start: 06-30-2017 End: 06-30-2017 Ambulatory DAVIS VIDAL [facility] Start: 02-22-2017 End: 05-10-2017 Ambulatory MO WILEY [facility] Start: 02-03-2017 End: 02-03-2017 Ambulatory CRISTHIAN MAYBERRY [facility] Start: 01-31-2017 End: 01-31-2017 Ambulatory DAVIS VIDAL [facility] Procedures Date Procedure Procedure Detail Performing Clinician Start: 05-04-2017 care care Bill Gallardo MD Start: 04-17-2017 End: 04-17-2017 Antibody screen Cookie Hickman Start: 04-12-2017 End: 04-12-2017 Routine OB Visit (Global) Cookie al MD Work Phone: Start: 04-12-2017 End: 04-12-2017 Routine OB Visit (Global) Cookie al MD Work Phone: Start: 04-07-2017 End: 04-08-2017 Routine OB Visit (Global) Cookie al MD Work Phone: Start: 04-07-2017 End: 04-08-2017 Routine OB Visit (Global) Cookie al MD Work Phone: Start: 03-24-2017 End: 03-24-2017 Routine OB Visit (Global) Kathi Blair [facility] [employer] Work Phone: Start: 03-24-2017 End: 03-24-2017 Routine OB Visit (Global) Kathi Blair [facility] [employer] Work Phone: Start: 03-17-2017 End: 03-17-2017 Routine OB Visit (Global) Kathi Blair [facility] [employer] Work Phone: Start: 03-17-2017 End: 03-17-2017 Routine OB Visit (Global) Kathi Blair [facility] [employer] Work Phone: Start: 03-01-2017 End: 03-01-2017 Antepartum care only 4-6 visits Cookie Gallardo MD Work Phone: Start: 03-01-2017 End: 03-01-2017 Antepartum care only Cookie powell MD Work Phone: Plan of Treatment Date Care Activity Detail Author Start: 06-01-2017 End: 06-01-2017 Appointment Appointment [facility] Start: 05-04-2017 End: 05-04-2017 Appointment Appointment [facility] Start: 04-12-2017 End: 04-12-2017 Appointment Appointment [facility] Start: 04-07-2017 End: 04-07-2017 Appointment Appointment [facility] Start: 03-31-2017 End: 03-31-2017 Appointment Appointment [facility] Start: 03-24-2017 End: 03-24-2017 Appointment Appointment [facility] Start: 03-17-2017 End: 03-17-2017 Appointment Appointment [facility] Start: 03-17-2017 End: 03-17-2017 Streptococcus agalactiae DNA [Presence] in Unspecified specimen by EDILIA with probe detection *GBSD - Group B Strep, DNA by PCR [facility] Start: 03-17-2017 End: 03-17-2017 Streptococcus agalactiae DNA [Presence] in Unspecified specimen by EDILIA with probe detection *GBSD - Group B Strep, DNA by PCR [facility] Start: 03-01-2017 End: 03-01-2017 Appointment Appointment [facility] Immunizations Immunization Date Immunization Notes Care Provider Nelly castillo 03-24-2017 tetanus toxoid, reduced diphtheria toxoid, and acellular pertussis vaccine, adsorbed Cookie Gallardo MD [facility] 03-24-2017 tetanus toxoid, reduced diphtheria toxoid, and acellular pertussis vaccine, adsorbed Kathi Washburn NP [facility] Payers Date Payer Category Payer Unknown [id number] Unknown Summary Purpose Family History No Family History Records FoundNo Family History Records FoundNo Family History Records Found Advance Directives No Advanced Directives Records FoundNo Advanced Directives Records FoundNo Advanced Directives Records Found Additional Source Comments INFORMATION SOURCE (unrecogn ized section and content) DATE CREATED AUTHOR AUTHOR'S ORGANIZ ATION 12/18/2018 [facility] DATE CREATED AUTHOR AUTHOR'S ORGANIZ ATION 12/28/2018 [facility] FOR RECORDS PERTAINING TO PATIENTS WHO ARE OR HAVE BEEN ENROLLED IN A CHEMICAL DEPENDENCY/SUBSTANCEABUSE PROGRAM, SOME INFORMATION MAY BE OMITTED. This clinical summary was aggregated from multiple sources. Caution should be exercised in using it in the provision of clinical care. This summary normalizes information from multiple sources, and as a consequence, information in this document may materially change the coding, format and clinical context of patient data. In addition, data may be omitted in some cases. CLINICAL DECISIONS SHOULD BE BASED ON THE PRIMARY CLINICAL RECORDS. [facility]. provides no warranty or guarantee of the accuracy or completeness of information in this document.
[2023-10-03 20:35] VITALS: PULSE 115; RESP 20; O2SAT 100
[2023-10-03 22:00] VITALS: BP 154/96; PULSE 102; RESP 12; O2SAT 99
[2023-10-03] MEDS: dexAMETHasone 4 MG/ML Vial IV (22:09)
[2023-10-03] MEDS: Magnesium Sulfate 2 GM in Dextrose 5%-Water (100mL Bag) 100 ML IV (22:11)
[2023-10-03] MEDS: Ketorolac 15 MG/ML Vial IV (23:14)
[2023-10-03] MEDS: Topiramate 25 MG Tablet PO (23:14)
[2023-10-03 23:15] VITALS: BP 136/84; PULSE 116; RESP 14; O2SAT 99
[2023-10-04 00:06] VITALS: BP 133/91; PULSE 113; RESP 12; O2SAT 99
--- NOTE | 2023-10-04 00:48 | HP.PCM_ITS ---
HPI - General General Date of Admission: 10/04/23 Date of Service: 10/04/23 Chief Complaint: Intractable headache HPI Narrative GELA MCKEON, is a 32 F who presents to the emergency room with the chief complaint of headache for the past 8 days. She has a chronic migraine history and states this is the longest headache she has had in quite some time. She complains of photophobia and phonophobia and has had Ubrelvy as an outpati ent, Toradol, Decadron, topiramate, Reglan and has had no relief of symptoms. She did get Topamax and another dose of Toradol prior to my evaluation and her headache had declined from a 10/10 to a 7/10 but she was still very uncomfortable. Due to the nature of intractable headache the ER physician felt necessary to admit the patient overnight for observation and treatment until her headache relented. There is no fever or chills or other meningitis like symptoms in her evaluation. [facility] Medical History Abnormal Pap smear of cervix History of emotional problems Hx of endometriosis Irritable bowel syndrome Migraine Seasonal allergies Home Medications acetaminophen 500 mg tablet (Tylenol Extra Strength) 500 mg PO Q6H PRN fever 06/17/22 [History Last Taken Unknown] loratadine 10 mg chewable tablet (Claritin) 10 mg PO DAILY PRN allergy symptoms 06/17/22 [History Last Taken Unknown] L norgest/E estradiol-E estrad 0.15 mg-30 mcg (84)/10 mcg(7) tabs,3mos (Seasonique) 1 tab PO DAILY #182 tabs 12/22/22 [Rx Last Taken Unknown] ubrogepant 50 mg tablet (Ubrelvy) 50 mg PO ONCE MIGRAINES #10 tabs 02/16/23 [Rx Last Taken Unknown] buspirone 10 mg tablet 10 mg PO BID #180 tabs 05/06/23 [Rx Last Taken Unknown] desvenlafaxine succinate 25 mg tablet,extended release 24 hr (Pristiq) 25 mg PO DAILY ANXIETY #90 tabs 09/14/23 [Rx Last Taken Unknown] desvenlafaxine succinate 50 mg tablet,extended release 24 hr (Pristiq) 50 mg PO DAILY ANXIETY #90 tabs 09/14/23 [Rx Last Taken Unknown] cyclobenzaprine 5 mg tablet 5 mg PO TID PRN headache #10 tabs 09/29/23 [Rx Last Taken Unknown] metoclopramide HCl 10 mg tablet 10 mg PO Q6H PRN nausea and vomiting #10 tabs 09/29/23 [Rx Last Taken Unknown] Allergy/AdvReac Type Severity Reaction Status Date / Time soap Allergy Rash Verified 09/29/23 13:25 sumatriptan [From Imitrex] Allergy Anaphylaxis Verified 09/29/23 13:25 Family History Grandmother Diabetes Cancer pancreatic Son Asthma Father Narcolepsy Hyperlipidemia Surgical History Endometriosis determined by laparoscopy Previous section Social History household members: spouse current occupational status: employed 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 Smoking Status: Former smoker quit date: 04/01/22 pack-years: 8 Electronic Cigarette Use: not used alcohol intake: current alcohol intake frequency: holidays/special occasions only details: occasionally substance use type: does not use caffeine: Yes what type of physical activity do you participate in: none seatbelt use: always do you feel safe at home: Yes additional social history: - 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 ROS Constitutional Constitutional: Denies chills or fever(s) Eyes Eyes: Denies change in vision ENT HEENT: Denies abnormal hearing Cardiovascular Cardiovascular: Denies chest pain Respiratory/Chest Respiratory/Chest: Denies cough or shortness of breath at rest Gastrointestinal Gastrointestinal: Denies abdominal pain Genitourinary Genitourinary: Denies dysuria Musculoskeletal Musculoskeletal: Denies back pain Integumentary Integumentary: Denies dry skin Neurologic Neurologic: Denies abnormal gait Psychiatric Psychiatric: Denies anxiety Vital Signs Vital Signs Vital Signs: 10/03/23 16:20 10/03/23 18:20 10/03/23 20:35 Temperature 98.2 F Temperature Source Temporal Pulse Rate 107 H 107 H 115 H Respiratory Rate 18 18 20 H Blood Pressure 157/107 H 147/101 H Blood Pressure Mean 123 116 Pulse Ox 98 100 100 Oxygen Delivery Method Room Air Room Air Room Air 10/03/23 22:00 10/03/23 23:15 10/04/23 00:06 Temperature Temperature Source Pulse Rate 102 H 116 H 113 H Respiratory Rate 12 14 12 Blood Pressure 154/96 H 136/84 H 133/91 H Blood Pressure Mean 115 101 105 Pulse Ox 99 99 99 Oxygen Delivery Method Room Air Room Air Room Air Weight Weight: 160 lb 12.8 oz Body Mass Index (BMI) 27.6 Physical Exam Const alert and oriented x3 Constitutional Narrative: grimacing General Appearance: cooperative HEENT normocephalic and head/scalp atraumatic Eyes PERRL Neck No nuchal rigidity and No no lymphadenopathy Lymph Lymphatic: no lymphadenopathy noted Resp normal respiratory effort, normal air movement and clear to auscultation bilaterally Cardio regular rate, regular rhythm, S1 normal heart sound and S2 normal heart sound GI normal to inspection, nondistended, normoactive bowel sounds Skin General Skin Exam: turgor normal Neuro CN's II-XII intact bilaterally Psych thought process normal Results Imaging Radiology Impression Brain CT 10/03/23 18:17 IMPRESSION: Normal unenhanced CT scan of the brain. Electronically Signed: Ricky Parmar MD at 20:27 EST Reading Location ID and State: [facility] [place] Tel , Service support , Assessment & Plan Assessment/Plan (1) Intractable headache: PLAN: Plan 1. Intractable headache?admit patient to general medical floor for observation, continue Topamax 25 mg p.o. twice daily at a dose of Neurontin 300 mg p.o. x 1 now and continue Toradol 15 mg IV every 6 hours as needed headache along with Zofran 8 mg IV every 8 hours as needed nausea . Discussed potentially seeing headache specialist after discharge with the patient to consider more advanced modalities including Botox injections. Patient might want to look into [facility] as an option as well. 2. DVT prophylaxis?patient is ambulatory and low risk at this time Charges/Coding Visit Charges OBSV E&M: 60617 Observ/hosp same date L2
[2023-10-04 00:50] VITALS: BP 136/79; PULSE 122; RESP 16; TEMP 36.6; O2SAT 100
[2023-10-04 01:40] VITALS: BMI 27.7
--- OUTSIDE RECORDS SUMMARY | 2023-10-04 01:44 | XMS RPT_ITS | CCD ---
Author Name Unknown Address [address] [place] [address] Organization [facility] Care Team Providers Care Machine Operator General Name Role Phone Cookie Gallardo MD Unavailable [phone] Maddison ARCINIEGA, Kathi Blair Unavailable [phone] DAVIS VIDAL Unavailable Unavailable CRISTHIAN NELSON Unavailable Unavail able COOKIE GALLARDO Unavailable Unavailable MO WILEY Unavailable Unavailable COOKIE GALLARDO Unavailable Unavailable Cookie Gallardo MD Unavailable [phone] Maddison ARCINIEGA, Kathi Blair Unavailable [phone] PROVIDER, UNKNOWN Referring Unavailable Bruno Navarrete Primary Care Unavailable Veroncia Orozco Attending Unavailable Allergies Allergy Classification Reported Allergen(s) Allergy Type Date of Onset Reaction(s) Facility (20 sources) SUMAtriptan drug allergy 7 [facility] (1 source) SUMAtriptan; Translations: [SUMATRIPTAN SUCCINATE] Drug Allergy 6 [facility] (1 source) SOAP; Translations: [SOAP] Propensity to adverse reactions to drug (disorder) 5 [facility] Medications Completed/Discontinued Medications Medication Drug Class(es) Dates Sig (Normalized) Sig (Original) LEVONORGEST-ETH ESTRAD 91-DAY (3 sources) Start: 06-01-2017 take 1 tablet by mouth once daily SEASONIQUE 0.15-0.03 &0.01 MG TABS One tablet by mouth daily LEVONORGEST-ETH ESTRAD 91-DAY [id number] Cookie Gallardo MD VIT-FE FUMARATE-FA (10 sources) Start: 03-01-2017 take 1 tablet by mouth once daily VITAMINS 28-0.8 MG TABS One tablet by mouth daily VIT-FE FUMARATE-FA [id number] Cookie Gallardo MD Problems Active Problems Problem [...] Mass Index) 28.32 kg/m2 Cookie Gallardo MD [facility] 06-01-2017 11:36-0400 BP Diastolic 78 mm[Hg] Cookie Gallardo MD [facility] 06-01-2017 11:36-0400 BP Systolic 125 mm[Hg] Cookie Gallardo MD [facility] 06-01-2017 11:36-0400 Pulse (Heart Rate) 109 /min Cookie Gallardo MD [facility] 06-01-2017 11:36-0400 Weight 74.84 kg Cookie Gallardo MD [facility] 05-04-2017 11:36-0400 BMI (Body Mass Index) 28.66 kg/m2 Cookie Gallardo MD [facility] 05-04-2017 11:36-0400 Body Temperature 97.7 [degF] Cookie Gallardo MD [facility] 05-04-2017 11:36-0400 BP Diastolic 89 mm[Hg] Cookie Gallardo MD [facility] 05-04-2017 11:36-0400 BP Systolic 134 mm[Hg] Cookie Gallardo MD [facility] 05-04-2017 11:36-0400 Pulse (Heart Rate) 107 /min Cookie Gallardo MD [facility] 05-04-2017 11:36-0400 Respiratory Rate 16 /min Cookie Gallardo MD [facility] 05-04-2017 11:36-0400 Weight 75.75 kg Cookie Gallardo MD [facility] 04-12-2017 07:05-0400 BMI (Body Mass Index) 33.5 kg/m2 Cookie Gallardo MD [facility] 04-12-2017 07:05-0400 Body Temperature 98.2 [degF] Cookie Gallardo MD [facility] 04-12-2017 07:05-0400 BP Diastolic 83 mm[Hg] Cookie Gallardo MD [facility] 04-12-2017 07:05-0400 BP Systolic 136 mm[Hg] Cookie Gallardo MD [facility] 04-12-2017 07:05-0400 Pulse (Heart Rate) 100 /min Cookie Gallardo MD [facility] 04-12-2017 07:05-0400 Respiratory Rate 16 /min Cookie Gallardo MD [facility] 04-12-2017 07:05-0400 Weight 88.54 kg Cookie Gallardo MD [facility] 04-07-2017 14:15-0400 BMI (Body Mass Index) 33.33 kg/m2 Cookie Gallardo MD [facility] 04-07-2017 14:15-0400 Body Temperature 98.5 [degF] Cookie Gallardo MD [facility] 04-07-2017 14:15-0400 BP Diastolic 88 mm[Hg] Cookie Gallardo MD [facility] 04-07-2017 14:15-0400 BP Systolic 124 mm[Hg] Cookie Gallardo MD [facility] 04-07-2017 14:15-0400 Pulse (Heart Rate) 85 /min Cookie Gallardo MD [facility] 04-07-2017 14:15-0400 Respiratory Rate 17 /min Cookie Gallardo MD [facility] 04-07-2017 14:15-0400 Weight 88.09 kg Cookie Gallardo MD [facility] 03-31-2017 13:28-0400 BMI (Body Mass Index) 33.78 kg/m2 Cookie Gallardo MD [facility] 03-31-2017 13:28-0400 Body Temperature 98.4 [degF] Cookie Gallardo MD [facility] 03-31-2017 13:28-0400 BP Diastolic 81 mm[Hg] Cookie Gallardo MD [facility] 03-31-2017 13:28-0400 BP Systolic 138 mm[Hg] Cookie Gallardo MD [facility] 03-31-2017 13:28-0400 Pulse (Heart Rate) 107 /min Cookie Gallardo MD [facility] 03-31-2017 13:28-0400 Respiratory Rate 16 /min Cookie Gallardo MD [facility] 03-31-2017 13:28-0400 Weight 89.27 kg Cookie Gallardo MD [facility] 03-24-2017 15:42-0400 BMI (Body Mass Index) 33.33 kg/m2 Kathi Maddison COOKER OPERATOR [facility] 03-24-2017 15:42-0400 Body Temperature 98 [degF] Kathi Maddison [facility] 03-24-2017 15:42-0400 BP Diastolic 82 mm[Hg] Kathi Maddison COOKER OPERATOR [facility] 03-24-2017 15:42-0400 BP Systolic 130 mm[Hg] Kathi Redmond COOKER OPERATOR [facility] 03-24-2017 15:42-0400 Pulse (Heart Rate) 104 /min Kathi Redmond COOKER OPERATOR [facility] 03-24-2017 15:42-0400 Respiratory Rate 16 /min Kathi Maddison COOKER OPERATOR [facility] 03-24-2017 15:42-0400 Weight 88.09 kg Kathi Maddison COOKER OPERATOR [facility] 03-17-2017 15:48-0400 BMI (Body Mass Index) 33.02 kg/m2 Kathi Maddison COOKER OPERATOR [facility] 03-17-2017 15:48-0400 Body Temperature 99.2 [degF] Kathi Redmond COOKER OPERATOR [facility] 03-17-2017 15:48-0400 BP Diastolic 80 mm[Hg] Kathi Maddison COOKER OPERATOR [facility] 03-17-2017 15:48-0400 BP Systolic 115 mm[Hg] Kathi Maddison COOKER OPERATOR [facility] 03-17-2017 15:48-0400 Pulse (Heart Rate) 116 /min Kathi Maddison COOKER OPERATOR [facility] 03-17-2017 15:48-0400 Respiratory Rate 17 /min Kathi Redmond COOKER OPERATOR [facility] 03-17-2017 15:48-0400 Weight 87.27 kg Kathi Maddison COOKER OPERATOR [facility] 03-01-2017 16:15-0400 BMI (Body Mass Index) 32.37 kg/m2 Cookie Gallardo MD [facility] 03-01-2017 16:15-0400 Body Temperature 98.9 [degF] Cookie Gallardo MD [facility] 03-01-2017 16:15-0400 BP Diastolic 77 mm[Hg] Cookie Gallardo MD [facility] 03-01-2017 16:15-0400 BP Systolic 124 mm[Hg] Cookie Gallardo MD [facility] 03-01-2017 16:15-0400 Height 162.56 cm Cookie Gallardo MD [facility] 03-01-2017 16:15-0400 Pulse (Heart Rate) 96 /min Cookie Gallardo MD [facility] 03-01-2017 16:15-0400 Respiratory Rate 16 /min Cookie Gallardo MD [facility] 03-01-2017 16:15-0400 Weight 85.55 kg Cookie Gallardo MD [facility] Encounters Encounter Date Encounter Type Care Provider Facility Start: 12-03-2018 End: 12-08-2018 Evaluation and management of inpatient [facility] PROVID[facility] Start: 06-30-2017 End: 06-30-2017 Ambulatory DAVIS VIDAL [facility] Start: 02-22-2017 End: 05-10-2017 Ambulatory MO WILEY [facility] Start: 02-03-2017 End: 02-03-2017 Ambulatory CRISTHIAN MAYBERRY [facility] Start: 01-31-2017 End: 01-31-2017 Ambulatory DAVIS VIDAL [facility] Procedures Date Procedure Procedure Detail Performing Clinician [...] OB Visit (Global) Kathi Blair Hastin gs COOKER OPERATOR Work Phone: Start: 03-24-2017 End: 03-24-2017 Routine OB Visit (Global) Kathi Blair Hastin gs COOKER OPERATOR Work Phone: Start: 03-17-2017 End: 03-17-2017 Routine OB Visit (Global) Kathi Blair Hastin gs COOKER OPERATOR Work Phone: Start: 03-17-2017 End: 03-17-2017 Routine OB Visit (Global) Kathi Blair Hastin gs COOKER OPERATOR Work Phone: Start: 03-01-2017 End: 03-01-2017 Antepartum care only 4-6 visits Cookie Gallardo MD Work Phone: Start: 03-01-2017 End: 03-01-2017 Antepartum care only Cookie powell MD Work Phone: Plan of Treatment Date Care Activity Detail Author Start: 06-01-2017 End: 06-01-2017 Appointment Appointment [facility] Start: 05-04-2017 End: 05-04-2017 Appointment Appointment [facility] Start: 04-12-2017 End: 04-12-2017 Appointment Appointment [facility] Start: 04-07-2017 End: 04-07-2017 Appointment Appointment [facility] Start: 03-31-2017 End: 03-31-2017 Appointment Appointment [facility] Start: 03-24-2017 End: 03-24-2017 Appointment Appointment [facility] Start: 03-17-2017 End: 03-17-2017 Appointment Appointment [facility] Start: 03-17-2017 End: 03-17-2017 Streptococcus agalactiae DNA [Presence] in Unspecified specimen by EDILIA with probe detection *GBSD - Group B Strep, DNA by PCR [facility] Start: 03-17-2017 End: 03-17-2017 Streptococcus agalactiae DNA [Presence] in Unspecified specimen by EDILIA with probe detection *GBSD - Group B Strep, DNA by PCR [facility] Start: 03-01-2017 End: 03-01-[address] [facility] Immunizations Immunization Date Immunization Notes Care Provider Nelly castillo 03-24-2017 tetanus toxoid, reduced diphtheria toxoid, and acellular pertussis vaccine, adsorbed Cookie Gallardo MD [facility] 03-24-2017 tetanus toxoid, reduced diphtheria toxoid, and acellular pertussis vaccine, adsorbed Kathi Washburn NP [facility] Payers Date Payer Category Payer Unknown [id number] Unknown Summary Purpose Family History No Family History Records FoundNo Family History Records FoundNo Family History Records Found Advance Directives No Advanced Directives Records FoundNo Advanced Directives Records FoundNo Advanced Directives Records Found Additional Source Comments INFORMATION SOURCE (unrecogn ized section and content) DATE CREATED AUTHOR AUTHOR'S ORGANIZ ATION 12/18/2018 [facility] DATE CREATED AUTHOR AUTHOR'S ORGANIZ ATION 12/28/2018 [facility] FOR RECORDS PERTAINING TO PATIENTS WHO [...] BE BASED ON THE PRIMARY CLINICAL RECORDS. [facility] [employer] [facility]. provides no warranty or guarantee of the accuracy or completeness of information in this document.
[2023-10-04 01:46] VITALS: BP 132/93; PULSE 99; RESP 18; TEMP 36.7; O2SAT 98
[2023-10-04] MEDS: Ketorolac 15 MG/ML Vial IV (05:21)
[2023-10-04 05:23] VITALS: BP 121/80; PULSE 94; RESP 18; TEMP 36.6; O2SAT 97
--- NOTE | 2023-10-04 07:47 | PCM.PN.HOSP ---
Reason for Visit Reason for Visit: Diagnoses Headache, unspecified (10/04/23) Subjective Subjective Patient is a 32-year-old female admitted with intractable headache diagnosed with acute migrainous attack Objective Data Objective Data Vital Signs: Vital Signs Temp Pulse Resp BP Pulse Ox O2 Del Method 97.9 F 94 18 121/80 H 97 Room Air 10/04/23 05:23 10/04/23 05:23 10/04/23 05:23 10/04/23 05:23 10/04/23 05:23 10/04/23 05:23 Oxygen Delivery Method Room Air Weight: 73.3 kg Body Mass Index (BMI) 27.7 Intake & Output: Intake and Output for Last 24 Hours 10/02/23 10/03/23 10/04/23 23:59 23:59 23:59 Intake Total 1060 / 1154.47 104.00 / 104.00 Balance 1060 / 1154.47 104.00 / 104.00 Radiography Diagnostic Testing: Radiology Impression Brain CT 10/03/23 18:17 IMPRESSION: Normal unenhanced CT scan of the brain. Electronically Signed: Ricky Parmar MD at 20:27 EST , Physical Exam Narrative GENERAL: cooperative HEENT: Atraumatic; normocephalic EYES; Anicteric, Normal Conjunctiva NECK; supple, normal thyroid, RESPIRATORY: Diminished to auscultation CARDIOVASCULAR: Regular S1 S2, GI: soft, normoactive bowel sounds, : No Renal angle tenderness; EXTREMITIES: No edema, no clubbing, MUSCULOSKELETAL: no muscle wasting NEURO: Awake; no lateralizing signs. SKIN: No Rash PSYCH; Flat affect Assessment & Plan Assessment/Plan (1) Intractable headache: PLAN: Plan Patient is a 32-year-old female admitted with intractable headache diagnosed with acute migrainous attack 1. Acute migrainous attack ? Admitted to regular nursing floor for symptom management 2. DVT prophylaxis ? Low risk with encouraging ambulation and
[2023-10-04] MEDS: Gabapentin 300 MG Capsule PO (07:52)
[2023-10-04] MEDS: Acetaminophen 500 MG Tablet PO (07:52)
[2023-10-04 08:00] VITALS: PULSE 85
--- NOTE | 2023-10-04 08:24 | PCM.DC.SUM ---
Providers Date of Admission: 10/04/23 Date of Discharge: 10/04/23 Primary Care Physician: Dr. Sharmila Upton MD Reason For Visit: INTRACTABLE HEADACHE Diagnosis Discharge Diagnosis (1) Intractable headache: Status: Acute Code(s): R51.9 - Headache, unspecified Plan Patient is a 32-year-old female admitted with intractable headache diagnosed with acute migrainous attack 1. Acute migrainous attack ? Admitted to regular nursing floor for symptom management temperaments IV fluid antinausea medication and gabapentin. Symptoms did improve patient was discharged with a prescription for topiramate with follow-up appointment set up with neurology 2. DVT prophylaxis ? Low risk with encouraging ambulation and Medications at Discharge Home Medications acetaminophen 500 mg tablet (Tylenol Extra Strength) 500 mg PO Q6H PRN fever 06/17/22 loratadine 10 mg chewable tablet (Claritin) 10 mg PO DAILY PRN allergy symptoms 06/17/22 L norgest/E estradiol-E estrad 0.15 mg-30 mcg (84)/10 mcg(7) tabs,3mos (Seasonique) 1 tab PO DAILY #182 tabs 12/22/22 buspirone 10 mg tablet 10 mg PO BID #180 tabs 05/06/23 desvenlafaxine succinate 25 mg tablet,extended release 24 hr (Pristiq) 25 mg PO DAILY ANXIETY #90 tabs 09/14/23 desvenlafaxine succinate 50 mg tablet,extended release 24 hr (Pristiq) 50 mg PO DAILY ANXIETY #90 tabs 09/14/23 cyclobenzaprine 5 mg tablet 5 mg PO TID PRN headache #10 tabs 09/29/23 metoclopramide HCl 10 mg tablet 10 mg PO Q6H PRN nausea and vomiting #10 tabs 09/29/23 topiramate 25 mg tablet 25 mg PO BID #60 tabs 10/04/23 ubrogepant 50 mg tablet (Ubrelvy) 50 mg PO DAILY PRN PRN MIGRAINES 10/04/23 Hospital Course Summary of Care Provided Minutes Spent on Discharge: 35 Physical Exam Narrative GENERAL: cooperative HEENT: Atraumatic; normocephalic EYES; Anicteric, Normal Conjunctiva NECK; supple, normal thyroid, RESPIRATORY: Diminished to auscultation CARDIOVASCULAR: Regular S1 S2, GI: soft, normoactive bowel sounds, : No Renal angle tenderness; EXTREMITIES: No edema, no clubbing, MUSCULOSKELETAL: no muscle wasting NEURO: Awake; no lateralizing signs. SKIN: No Rash PSYCH; Flat affect Weight / BMI Weight Weight: 73.3 kg Body Mass Index (BMI) 27.7 Radiography Diagnostic Testing: Radiology Impression Brain CT 10/03/23 18:17 IMPRESSION: Normal unenhanced CT scan of the brain. Electronically Signed: Ricky Parmar MD at 20:27 EST , D/C Instructions Discharge Diet: No restrictions Discharge Activity: Return to Normal Activity Call your doctor if you observe: Fever of 101 or Higher, Shortness of breath, Fainting spells and Chest pain Meaningful Use Info Meaningful Use Diagnoses (Choose all that apply): None applicable Discharge Plan Admission Admit Date/Time: 10/04/23 00:55 Attending Provider: Remi Hills Primary Care Provider: Sharmila Upton Consulting Providers: Jorge Luis Collins Discharge Orders/Prescriptions Prescriptions: New topiramate 25 mg Tablet 25 mg PO BID Qty: 60 0RF Continued acetaminophen [Tylenol Extra Strength] 500 mg tablet 500 mg PO Q6H PRN (Reason: fever) Claritin 10 mg tablet,chewable 10 mg PO DAILY PRN (Reason: allergy symptoms) L norgest/e.estradiol-e.estrad [Seasonique] 0.15 mg-30 mcg (84)/10 mcg (7) tablets,dose pack,3 month 1 tab PO DAILY Qty: 182 4RF metoclopramide HCl 10 mg tablet 10 mg PO Q6H PRN (Reason: nausea and vomiting) Qty: 10 0RF cyclobenzaprine 5 mg tablet 5 mg PO TID PRN (Reason: headache) Qty: 10 0RF Ubrelvy 50 mg tablet 50 mg PO DAILY PRN PRN (Reason: MIGRAINES) Rx Instructions: as a single dose; may repeat once in >=2 hours after first dose if needed buspirone 10 mg tablet 10 mg PO BID Qty: 180 0RF desvenlafaxine succinate [Pristiq] 25 mg tablet extended release 24 hr 25 mg PO DAILY Qty: 90 0RF Rx Instructions: take in addition to 50mg for a total of 75mg daily desvenlafaxine succinate [Pristiq] 50 mg tablet extended release 24 hr 50 mg PO DAILY Qty: 90 0RF Referrals / Follow Up: Sharmila Upton MD [Primary Care Provider] - Within 2 Weeks Lan Hicks MD [Non-Staff] - (Financial department should get ahold of you within 5-10 business days to discuss finances with being self pay. Then you should be able to schedule an appointment.) Disposition Disposition (needs filled in before D/C Order can be placed): Home, Self Care Charges/Coding Visit Charges Inpatient E&M: 80579 Disch Hosp >30min
--- NOTE | 2023-10-04 10:23 | CASEMGMT ---
TC to [facility], pt cost for medication is $7.43.
[2023-10-04] MEDS: busPIRone 5 MG Tablet 10 MG PO (10:44)
[2023-10-04] MEDS: Venlafaxine XR 37.5 MG Capsule PO (10:44)
[2023-10-04] MEDS: Topiramate 25 MG Tablet PO (10:44)
== END 2023-10-04 13:02 | disposition home or self-care (01) ==
LOC: ED 10-04 00:55 → MS3 10-04 01:15
PROVIDERS: Admitting Provider Family Medicine; Emergency Provider Emergency Medicine; PCP Internal Medicine; Visit Provider Internal Medicine
DX: G43.919 Migraine, unspecified, intractable, without status migrainosus (principal); R11.2 Nausea with vomiting, unspecified; Z87.891 Personal history of nicotine dependence; Z79.899 Other long term (current) drug therapy
CPT/HCPCS: 70450; 96361; 96365; 96375; 96376; 99221; 99285; J7030; A4216; G0378

== ENCOUNTER → 2024-07-12 | Outpatient (CLI) | payer OTHER, SELFPAY ==
[2024-07-12 12:03] LABS: Hematocrit 39.4 % (37-47); Hemoglobin 13.2 g/dL (12.0-15.0); Mean Corp Hgb Conc 33.5 g/dL (32-36); Mean Corpuscular Hgb 29.9 pg (27.0-32.0); Mean Corpuscular Volume 89.1 fL (81-99); Mean Platelet Vol. 11.1 fl (6.2-12.0); Platelet Count 232 K/mm3 (150-450); RBC Distribution Width CV 12.4 % (11.6-14.6); RBC Distribution Width SD 40.4 fl (35.1-43.9); Red Blood Count 4.42 M/mm3 (4.2-5.4); White Blood Count 9.1 K/mm3 (4.4-11.0)
[2024-07-12 12:42] LABS: AST(SGOT) 12 U/L (15-37); Alanine Aminotransfer ALT/SGPT 17 U/L (13-56); Albumin, Serum 3.5 g/dL (3.2-5.0); Alkaline Phosphatase 53 U/L (45-117); Anion Gap 6 (5-15); BUN 12 mg/dL (7-18); Calcium,Total 8.6 mg/dL (8.5-10.1); Chloride 112 mmol/L (98-107); Cholesterol 179 mg/dL (200); EST Glomerular Filtration Rate 68 mL/min (>60); Est Glom Filt Rate - Afr Amer 82 mL/min (>60); Globulin 3.6 g/dL (2.2-4.2); Glucose 94 mg/dL (74-106); High Density Lipoprotein 44 mg/dL; Potassium 3.6 mmol/L (3.5-5.1); Protein, Total 7.1 g/dL (6.4-8.2); Sodium Level 141 mmol/L (136-145); Triglycerides 97 mg/dL; Very Low Density Lipoprotein 19 mg/dL (5-40)
== END | disposition home or self-care (01) ==
LOC: BIMLAB 10:09
PROVIDERS: PCP Internal Medicine; Referring Provider Physician Assistant; Visit Provider Physician Assistant
DX: Z00.00 Encounter for general adult medical examination without abnormal findings (principal); F41.9 Anxiety disorder, unspecified; F32.A Depression, unspecified
CPT/HCPCS: 36415; 80053; 80061; 84443; 85027

== ENCOUNTER → 2024-10-30 | Outpatient (CLI) | payer OTHER, SELFPAY ==
[2024-10-30 15:39] LABS: Absolute Neutrophil Count 2.8 X10^3/uL (2.0-7.7); Basophil# 0.04 X10^3/uL; Basophil% 0.6 % (0-1); Eosinophil# 0.11 X10^3/uL; Eosinophils% 1.7 % (0-5); Hematocrit 38.9 % (37-47); Hemoglobin 13.1 g/dL (12.0-15.0); Lymphocyte % 47.4 % (19-41); Mean Corp Hgb Conc 33.7 g/dL (32-36); Mean Corpuscular Hgb 29.7 pg (27.0-32.0); Mean Corpuscular Volume 88.2 fL (81-99); Monocyte% 6.3 % (0-10); NRBC Flagged by Analyzer 0 % (0-5); Neutrophil # 2.77 X10^3/uL (2.7-7.7); Neutrophil % 43.8 % (47-70); Platelet Count 268 K/mm3 (150-450); RBC Distribution Width CV 12.4 % (11.6-14.6); Red Blood Count 4.41 M/mm3 (4.2-5.4); White Blood Count 6.3 K/mm3 (4.4-11.0)
[2024-10-30 17:48] LABS: ALB/GLOB Ratio 1.5 RATIO (0.9-2.4); AST(SGOT) 16 U/L (<=31); Alanine Aminotransfer ALT/SGPT 13 U/L (<=34); Albumin, Serum 4.4 g/dL (3.5-5.0); Alkaline Phosphatase 61 U/L (35-104); Anion Gap 12 (5-15); BUN 8 mg/dL (4-19); BUN/Creat Ratio 8.3 RATIO (10-20); Calcium,Total 8.8 mg/dL (7.6-11.0); Carbon Dioxide 20.8 mmol/L (21.0-32.0); Chloride 108 mmol/L (98-108); Creatinine, Serum 0.96 mg/dL (0.70-1.20); EST Glomerular Filtration Rate 81 (>60); Ferritin 65 ng/mL (22-378); Glucose 87 mg/dL (70-99); Iron 95 ug/dL (50-170); Iron Binding Capacity,Total 351 ug/dL (250-450); Iron Binding Capacity,Unsat 256 ug/dL (228-428); Potassium 3.8 mmol/L (3.3-5.1); Protein, Total 7.4 g/dL (5.9-8.4); Sodium Level 141 mmol/L (133-145); Total Bilirubin 0.78 mg/dL (0.00-1.30); Vitamin B12 632 pg/mL (180-914); Vitamin D,25 Hydroxy 82.1 ng/mL (30-100)
[2024-11-01 12:08] LABS: ANTINUCLEAR ANTIBODIES DIRECT Positive (Negative); Anti-Centromere B Ab <0.2 AI (0.0-0.9); Anti-Chromatin 0.2 AI (0.0-0.9); Anti-Jo <0.2 AI (0.0-0.9); Anti-Scleroderma-70 AB 2.2 AI (0.0-0.9); Anti-dsDNA Ab 7 IU/mL (0-9); RNP Ab 0.3 AI (0.0-0.9); SJOGREN'S Anti-SS-A test < 0.2 AI (0.0-0.9); SJOGREN'S Anti-SS-B test 0.2 AI (0.0-0.9); Smith Ab <0.2 AI (0.0-0.9)
== END | disposition home or self-care (01) ==
LOC: BIMLAB 13:56
PROVIDERS: PCP Internal Medicine; Referring Provider Internal Medicine; Visit Provider Internal Medicine
DX: R53.83 Other fatigue (principal); F41.9 Anxiety disorder, unspecified; F32.A Depression, unspecified
CPT/HCPCS: 36415; 80053; 82306; 82607; 82728; 83540; 83550; 85025; 86038; 86225; 86235

== ENCOUNTER → 2024-12-04 | Outpatient (CLI) | payer OTHER, SELFPAY ==
--- NOTE | 2024-12-04 09:31 | RAD_ITS ---
PROCEDURE: L/S SPINE MIN 4 VIEWS 12/04/2024 REASON FOR EXAM: POSITIVE CAROLYNN (ANTINUCLEAR ANTIBODY) FATIGUE TECHNIQUE: Four views; AP, bilateral oblique and lateral COMPARISON: None available FINDINGS: Left thoracolumbar scoliosis. 5 [id number] lumbar vertebral body types identified. No fracture or malalignment. No evidence of spondylolysis. L4-5 mild disc space narrowing. No sclerosis identified. No evidence of ankylosis spondylitis. RAD/L/S Spine Min 4 Views IMPRESSION: Scoliosis. L4-5 mild disc space narrowing. Reading Location: [id number]
--- NOTE | 2024-12-04 09:31 | RAD_ITS ---
PROCEDURE: PELVIS 1 OR 2 VIEWS 12/04/2024 REASON FOR EXAM: POSITIVE CAROLYNN (ANTINUCLEAR ANTIBODY) FATIGUE TECHNIQUE: 1 view(s) of the pelvis. COMPARISON: None available FINDINGS: Symmetric appearing SI joints and pubic symphysis appear within limits. No sclerosis identified. Hips appear within limits. RAD/Pelvis 1 or 2 Views IMPRESSION: Study appears within limits. Reading Location: [id number]
[2024-12-04 10:32] LABS: EXAGEN MAILED SPECIMEN
[2024-12-04 12:48] LABS: Absolute Lymphocyte Count 2.29 X10^3/uL (0.83-4.51); Absolute Neutrophil Count 3.9 X10^3/uL (2.0-7.7); Basophil# 0.07 X10^3/uL; Eosinophil# 0.22 X10^3/uL; Eosinophils% 3.2 % (0-5); Hematocrit 39.8 % (37-47); Hemoglobin 13.7 g/dL (12.0-15.0); Lymphocyte # 2.29 X10^3/ul (0.83-4.51); Lymphocyte % 33.4 % (19-41); Mean Corp Hgb Conc 34.4 g/dL (32-36); Mean Corpuscular Hgb 30.3 pg (27.0-32.0); Mean Corpuscular Volume 88.1 fL (81-99); Mean Platelet Vol. 10.8 fl (6.2-12.0); Monocyte# 0.37 X10^3/uL; Monocyte% 5.4 % (0-10); NRBC Flagged by Analyzer 0 % (0-5); Neutrophil # 3.89 X10^3/uL (2.7-7.7); Neutrophil % 56.7 % (47-70); Platelet Count 259 K/mm3 (150-450); RBC Distribution Width CV 12.4 % (11.6-14.6); RBC Distribution Width SD 40.2 fl (35.1-43.9); Red Blood Count 4.52 M/mm3 (4.2-5.4); White Blood Count 6.9 K/mm3 (4.4-11.0)
[2024-12-04 12:51] LABS: Erythrocyte Sedimentation Rate 7 mm/hr (0-30)
[2024-12-04 13:06] LABS: ALB/GLOB Ratio 1.3 RATIO (0.9-2.4); AST(SGOT) 19 U/L (<=31); Alanine Aminotransfer ALT/SGPT 16 U/L (<=34); Albumin, Serum 4.2 g/dL (3.5-5.0); Alkaline Phosphatase 62 U/L (35-104); Anion Gap 10 (5-15); BUN 13 mg/dL (4-19); BUN/Creat Ratio 12.7 RATIO (10-20); Calcium,Total 8.9 mg/dL (7.6-11.0); Carbon Dioxide 22.2 mmol/L (21.0-32.0); Chloride 107 mmol/L (98-108); EST Glomerular Filtration Rate 76 (>60); Globulin 3.2 g/dL (2.2-4.2); Glucose 94 mg/dL (70-99); Potassium 3.7 mmol/L (3.3-5.1); Protein, Total 7.5 g/dL (5.9-8.4); Sodium Level 139 mmol/L (133-145); Total Bilirubin 0.58 mg/dL (0.00-1.30)
[2024-12-04 13:09] LABS: Protein, Urine (Random) 16.6 mg/dL (0.0-12.0); Protein:Creat Ratio 83 mg/g CRE (0-200)
[2024-12-04 13:14] LABS: Color, Urine Yellow (Yellow); Glucose, Dipstick Normal (Normal); Ketone-Dipstick Negative (Negative); Leukocyte Esterase-Dipstick Negative /ul (Negative); Nitrite-Dipstick Negative (Negative); Occult Blood-Urine 10 /ul (Negative); Protein-Dipstick 30 mg/dl (Negative); Specific Gravity, Urine 1.015 (1.002-1.030); Urine Bilirubin Dipstick Negative (Negative); Urine Clarity Clear (Clear); Urine Urobilinogen Normal (Normal); Urine pH 6.5 (5.0 - 8.0)
[2024-12-06 02:07] LABS: Dilute Prothrombin Time (dPT) 36.6 sec (0.0-47.6); Dilute Russell Viper Venom 38.2 sec (0.0-47.0); Interpretation Comment: (.); PTT-LA 32.7 sec (0.0-43.5); Thrombin Time 18.1 sec (0.0-23.0); dPT Confirm Ratio 1.26 Ratio (0.00-1.34)
== END | disposition home or self-care (01) ==
PROVIDERS: PCP Internal Medicine; Referring Provider Internal Medicine Rheumatology; Visit Provider Internal Medicine Rheumatology
DX: R76.8 Other specified abnormal immunological findings in serum (principal); R53.83 Other fatigue; G43.909 Migraine, unspecified, not intractable, without status migrainosus
CPT/HCPCS: 36415; 72110; 72170; 80053; 81002; 82570; 84156; 85025; 85652; 86140